=== PATIENT | male | born 1985 | race Caucasian/White ===

== ENCOUNTER 2023-04-14 12:32 | Emergency (ER) | payer OTHER, SELFPAY ==
[2023-04-14 12:49] VITALS: BP 134/83
--- NOTE | 2023-04-14 14:40 | ED.GENMED ---
History of Present Illness
General
Chief Complaint: Musculo-Skeletal Complaint
Time Seen by Provider: 04/14/23 14:00
Travel History
Have you had any contact with someone who has COVID-19?: No
Do you have any symptoms of coronavirus? Fever > 100 degrees, chills, cough, shortness of breath, sore throat, loss of taste or smell, muscle aches, or headache?: No
History of Present Illness
History of Present Illness:
37-year-old male with no significant past medical history presents emergency department for evaluation of right shoulder pain after falling out of bed this morning. Pain is primarily to the AC joint region. Denies any distal paresthesias or arm
weakness. Denies any head injury or back pain
Review of Systems
Review of Systems
Allergies reviewed?: Yes
All Other Systems: ROS reviewed and negative except as documented in HPI and ROS
Phy Exam
Physical Exam
Physical Exam:
GEN: Well appearing, NAD, WDWN
HEENT: Oral mucosa moist, no scleral icterus
Cardiac: Regular rate
Lung: No respiratory distress, no tachypnea
MSK: No gross deformity or injuries. Tender to the distal clavicle and AC joint without obvious step-off or deformity, range of motion of the right shoulder severely limited by pain, right radial pulse and sensation are intact fully
Skin: Good color, no pallor or jaundice, no rashes
Neuro: AO x3, moves all extremities freely
Psych: Calm, cooperative
Course
Orders/Labs/Results
Orders:
Orders
04/14/23 12:50
CR Shoulder, Trauma - Right Urgent
Comment:
Reason For Exam: fall
Vital Signs
Initial and Last Documented VS:
Initial Vital Signs
Temp Pulse Resp BP Pulse Ox
97.5 F 104 18 134/83 99
04/14/23 12:49 04/14/23 12:49 04/14/23 12:49 04/14/23 12:49 04/14/23 12:49
Last Documented Vital Signs
Temp Pulse Resp BP Pulse Ox
97.5 F 104 18 134/83 99
04/14/23 12:49 04/14/23 12:49 04/14/23 12:49 04/14/23 12:49 04/14/23 12:49
MDM/Problems Addressed
MDM/Problems Addressed:
Patient placed in sling for clavicle fracture, discussed supportive care and recommend outpatient orthopedic follow-up
Comment
Comment:
Right shoulder x-ray independently interpreted by me shows a nondisplaced comminuted distal clavicular shaft fracture with no obvious AC joint separation
*Critical Care Note
Total Time (30-74mins, 75-104mins- exclusive of procedures): Not Applicable
ED Attending Note
-
Portions of this chart may have been created with voice recognition software.� Occasional wrong word or��sound alike� substitutions may have occurred due to the inherent limitations of voice recognition software.
Discharge Plan
Departure
Patient Disposition: Home (Routine Discharge)
Date of Disposition: 04/14/23
Time of Disposition: 14:40
Patient with high blood pressure during this ER visit?: No
Discharge Problem:
Fracture of right clavicle
Instructions: Broken Collarbone ED
Prescriptions:
New
methocarbamol 750 mg tablet
750 - 1,500 mg PO Q8H PRN (Reason: pain) Qty: 20 0RF
Referrals:
Amanda Carlos, DO [Active] - Call in 1-3 days for appt
Haja Gaviria MD [Family Provider] -
Activity Restrictions/Additional Instructions:
Wear the sling at all times until Orthopedic follow up; however, for at least 30-60 minutes per day, remove the sling and let the arm hang below your waist to decrease elbow/shoulder joint stiffness
Interventions
Interventions:
*General Assessment Last Done: 04/14/23 12:49
ED- Fall Risk Assessment Last Done: 04/14/23 14:56
*ED COVID-19 Vaccine History Last Done: 04/14/23 12:49
*Nursing Disposition Last Done: 04/14/23 14:56
ED-Musculoskeletal Assessment Last Done: 04/14/23 14:55
Discharge Date and Time
Discharge Date/Time: 04/14/23 14:57
== END 2023-04-14 14:57 | disposition home or self-care (01) ==
LOC: EMR 12:32
PROVIDERS: EMERGENCY PHYSICIAN Emergency Medicine; FAMILY PHYSICIAN Family Medicine
DX: S42.031A Displaced fracture of lateral end of right clavicle, initial encounter for closed fracture (principal); W06.XXXA Fall from bed, initial encounter
CPT/HCPCS: 99283; 73030